=== PATIENT | male | born 1945 | race Caucasian/White ===

== ENCOUNTER → 2017-03-09 | Outpatient (CLI) | payer OTHER ==
[~2017-03-09] MED LIST: ACETAMINOPHEN PO; ACETAMINOPHEN1 EACH PO; ADVAIR 250-501 EAC1 INH; ADVAIR 2501 DISK W/D PO; ALBUTEROL17 GM INH; ANTIVERT PO; ATENOLOL PO; AVODART0.5 MG PO; CHLORTRIMETON PO; CO Q-10200 MG PO; COMBIVENT INH14.7 GM INH; ESOMEPRAZOLE MA20 MG PO; FISH OIL 1,0001 CAP PO; LIPITOR PO; LISINOPRIL10 MG PO; LOSARTAN POTASS25 MG PO; NABUMETONE PO; NEXIUM PO; NORVASC PO; PLAVIX PO; PROZAC PO; SINGULAIR PO; SPIRIVA18 MCG INH; TOPROL XL PO; TYLENOL PM EX-S1 TA4 PO; TYLENOL PM PO; TYLOX 5/500 CAP1 CAP PO; ZANTAC150 MG PO; ZETIA PO
--- NOTE | ~2017-03-09 | CT16 ---
[facility] A Service of [facility] & [facility] RADIOLOGY TEXT RESULTS PATIENT: NATASHA JEONG V [facility] UNIT #: [id number] AGE: [address]: Jam Lewis MD SEX: M ORDER DR: [id number] [facility] [address] [place], [place] [address] [id number] O MR#: [id number] Acc #: [id number] NAME: NATASHA JEONG : 1945 SEX: M STUDY DATE/TIME: 03/09/2017 12:32 UNIT: [facility] ROOM: STUDY DESCRIPTION: CT Angio Chest for PE Attending Physician: Jam Lewis M.D. Referring Physician: Jam Lewis M.D. Ordering Physician: Jam Lewis M.D. Primary Care Physician: Jam Lewis M.D. MEDICAL IMAGING REPORT This report is preliminary unless electronic signature is present EXAM CT angiogram of the chest for pulmonary embolism, 03/09/2017, 1232 hours. CLINICAL HISTORY 72-year-old man complaining of a 1-month history of left-sided aching chest pain. History of lung nodule on prior CT 11/13/2016. COMPARISON Chest CT, 11/13/2016. TECHNIQUE Dynamic helical CT angiographic images were obtained from the thoracic inlet through the adrenal glands. 3-D sagittal and coronal reconstructions were performed. Contrast was Isovue-370 100 mL IV. Total exam DLP 533 mGy-cm. This CT exam was performed with one or more of the following radiation dose reduction techniques: automatic exposure control, adjustment of mA and/or kV according to patient size, and iterative reconstruction. FINDINGS Images through the thoracic inlet are normal. Images through the chest demonstrate excellent opacification of the pulmonary arteries which are normal in caliber. There are no filling defects to suggest the presence of pulmonary emboli. There is mild ectasia of the aorta unchanged. No dissection is seen. Cardiac chambers and pericardium are normal. There is no pathologic mediastinal, hilar, or axillary adenopathy. The lungs are well expanded. There has been interval complete resolution of the right upper lobe nodule in the adjacent small tree-in-bud densities [facility] A Service of [facility] & [facility] RADIOLOGY TEXT RESULTS PATIENT: NATASHA JEONG V LOCATION: [facility] : 41 UNIT #: [id number] AGE: [address]: Jam Lewis MD SEX: M ORDER DR: which were likely infectious on 11/13/2016. There are no new or developing densities. There is pleural effusion or pneumothorax. Bone window images demonstrate a few Schmorl nodes and mild endplate degenerative changes of the thoracic spine. The sternum and manubrium are intact. There are no rib lesions. There is a single small rounded sclerotic lesion in the lower third of the sternum which is unchanged from 11/13/2016, but was not clearly seen on 05/31/2012. A benign etiology is favored. IMPRESSION 1. No evidence of pulmonary embolism. 2. Previous right upper lobe nodule and surrounding nodule or tree-in-bud densities seen on CT 11/13/2016 have completely resolved and likely represented acute infectious change in October 2016. The lungs are clear. There is no pleural effusion or a pneumothorax. 3. Stable degenerative changes in the thoracic spine. No definite rib lesions are seen. 4. There is a small less than 1 cm sclerotic rounded lesion in the lower third of the sternum which appears similar to 11/13/2016 and is not clearly seen on 05/31/2012. A benign etiology is favored. Correlate clinically. If the patient has a history of primary tumor or elevated PSA, I would consider further evaluation with a nuclear medicine bone scan. Dictated by... Kika Graves M.D. THIS IS AN ELECTRONICALLY VERIFIED REPORT Kika Graves M.D. at 03/12/2017 9:23 AM HORACIO/sebastien TD: 03/09/2017 14:59 JOB #: [id number] MEDICAL IMAGING REPORT Page 1 of 1 COPY
[2017-03-09 13:46] LABS: POC - CREATININE 0.92 mg/dL (0.64-1.27); POC - GFR >60.0 mL/min (>60)
== END | disposition home or self-care (01) ==
LOC: CCAT 11:36
PROVIDERS: Internal Medicine
DX: R07.9 Chest pain, unspecified (principal); M47.894 Other spondylosis, thoracic region
CPT/HCPCS: 71275; 82565; Q9967

== ENCOUNTER → 2017-04-16 | Outpatient (CLI) | payer OTHER ==
--- NOTE | ~2017-04-16 | CT98 ---
[facility] A Service of [facility] RADIOLOGY TEXT RESULTS PATIENT: NATASHA JEONG V LOCATION: [facility] : 41 UNIT #: [id number] AGE: [address]: Jam Lewis MD SEX: M ORDER DR: [id number] [address] [place], [place] [address] [id number] O MR#: [id number] Acc #: [id number] NAME: NATASHA JEONG : 1945 SEX: M STUDY DATE/TIME: 04/16/2017 8:07 UNIT: [facility] ROOM: STUDY DESCRIPTION: CT Lumbar Spine Wo Cont Attending Physician: Jam Lewis M.D. Referring Physician: Jam Lewis M.D. Ordering Physician: Jam Lewis M.D. Primary Care Physician: Jam Lewis M.D. MEDICAL IMAGING REPORT This report is preliminary unless electronic signature is present EXAM CT of the lumbar spine without contrast 04/16/17 HISTORY Low back pain. History of prostate cancer. Positive bone scan, positive MRI. TECHNIQUE Axial imaging of the lumbar spine was performed in anticipation of a biopsy of the L3 spinous process. The CT exam was performed with one or more of the following radiation dose reduction techniques: automatic exposure control, adjustment of mA and/or kV according to patient size, and iterative reconstruction. Transaxial imaging was performed showing a nondisplaced fracture through the spinous process of L3. There is no associated soft tissue mass or edema. The fracture appears subacute. The remaining bony elements are intact. CONCLUSION AND RECOMMENDATIONS The study shows a nondisplaced fracture through the posterior spinous process of L3 corresponding exactly with the MR bone scan findings. There is no associated soft tissue mass and no associated destruction. Findings represent a subacute fracture of the spinous process and does not represent any additional pathology. As such the patient's biopsy was cancelled and I would suggest a followup scan between 6 and 12 weeks to ensure further healing of the fracture. Dictated by... [facility] A Service of [facility] RADIOLOGY TEXT RESULTS PATIENT: NATASHA JEONG V LOCATION: [facility] : 41 UNIT #: [id number] AGE: [address]: Jam Lewis MD SEX: M ORDER DR: Vicente Chao M.D. THIS IS AN ELECTRONICALLY VERIFIED REPORT Vicente Chao M.D. at 04/17/2017 3:38 PM RADHA/mahi TD: 04/16/2017 10:34 JOB #: [id number] MEDICAL IMAGING REPORT Page 1 of 1 COPY
[2017-04-16 06:43] LABS: HEMATOCRIT 45.1 % (38.0-50.0); HEMOGLOBIN 14.7 gm/dL (13.0-16.0); MEAN CELL VOLUME 89.4 FL (83-96); MEAN CORPUSCULAR HEMOGLOBIN 29.1 PG (28-34); MEAN CORPUSCULAR HGB CONC 32.5 g/dL (30-36); MEAN PLATELET VOLUME 8.5 FL (6.5-11.5); RED BLOOD COUNT 5.04 X10e (3.90-5.60); WHITE BLOOD COUNT 9.4 X10e3 (4.0-10.5)
[2017-04-16 06:44] LABS: PARTIAL THROMBOPLASTIN TIME 27.1 SECONDS (23.5-31.3); PROTHROMBIN TIME (PATIENT) 10.4 SECONDS (10.0-11.7)
== END | disposition home or self-care (01) ==
LOC: CCAT 05:58
PROVIDERS: Internal Medicine
DX: R94.8 Abnormal results of function studies of other organs and systems (principal); M84.48XA Pathological fracture, other site, initial encounter for fracture
CPT/HCPCS: 36415; 72131; 85027; 85610; 85730; J2250; J3010